=== PATIENT | female | born 1960 | race Two or more races ===

== ENCOUNTER 2016-04-17 12:49 | Emergency (ER) | payer OTHER ==
[2016-04-17 15:18] LABS: ABSOLUTE NEUTROPHIL COUNT 14.4 K/mm3 (1.8-7.7); BASO % 0.2 % (0.2-1.0); EOS # 0.4 (0.0-0.5); EOS % 2.1 % (0.9-2.9); HEMATOCRIT 40.8 % (37.0-47.0); HEMOGLOBIN 12.9 gm/l (12.0-16.0); IMM NEUT # 0.1 K/mm3 (0-0.2); IMM NEUT% 0.3 % (0-1); LYMPH # 2.9 (1.0-4.8); LYMPH % 15.3 % (15-45); MEAN CELL VOLUME 81.1 fl (81.0-99.0); MEAN CORPUSCULAR HEMOGLOBIN 25.6 pg (27.0-31.0); MEAN CORPUSCULAR HGB CONC 31.6 g/dl (33.0-37.0); MEAN PLATELET VOLUME 10.5 fl (7.4-10.4); MONO # 0.9 (0.0-0.8); MONO % 4.9 % (4-12); NEUT % 77.2 % (43-75); PLATELET COUNT 261 K/mm3 (130-400); RED CELL DISTRIBUTION WIDTH 13.8 % (11.5-14.5)
[2016-04-17 15:24] LABS: SPECIFIC GRAVITY 1.015 (1.001-1.030); URINE BILIRUBIN NEGATIVE (NEGATIVE); URINE BLOOD TRACE (NEGATIVE); URINE GLUCOSE (UA) NEGATIVE (NEGATIVE); URINE LEUKOCYTE ESTERASE NEGATIVE (NEGATIVE); URINE NITRITE NEGATIVE (NEGATIVE); URINE PROTEIN NEGATIVE (NEGATIVE); URINE UROBILINOGEN NORMAL (0-1 mg/dl)
[2016-04-17] MEDS ORDERED: SODIUM CHLORIDE 0.9% 1,000 ML ONE (15:24)
[2016-04-17] MEDS ORDERED: ACETAMINOPHEN 500 MG TABLET ONE (15:24)
[2016-04-17] MEDS ORDERED: ONDANSETRON 4 MG/2ML 2 ML VIAL ONE (15:24)
[2016-04-17] MEDS ORDERED: ASPIRIN CHEWTAB 81 MG TABLET ONE (15:25)
[2016-04-17 15:26] LABS: HCG,QUALITATIVE URINE NEGATIVE
[2016-04-17 15:27] LABS: URINE APPEARANCE CLEAR; URINE COLOR YELLOW
[2016-04-17 15:27] LABS: ALB/GLOB RATIO 1.3 (>1.0); ALBUMIN 4.4 gm/dL (3.5-5.7); CALCIUM 9.4 mg/dL (8.6-10.3)
--- NOTE | 2016-04-17 16:28 | RAD ---
CHEST - 2 VIEWS COMPARISON: Chest 2 views, 09/10/2012 HISTORY: Chest discomfort. Viral syndrome. FINDINGS: Views: Frontal and lateral chest Lungs: Normal Heart and vessels: Normal Trachea and bronchi: Normal Mediastinum and guy: Normal Costophrenic sulci: Normal Chest wall and bones: Normal. Upper abdomen: Normal. IMPRESSION: Negative 2 view chest.
== END 2016-04-17 16:52 | disposition home or self-care (01) ==
LOC: ED 12:49
DX: M79.1 Myalgia (principal); R07.9 Chest pain, unspecified; R10.32 Left lower quadrant pain; R11.2 Nausea with vomiting, unspecified; E11.9 Type 2 diabetes mellitus without complications; Z79.84 Long term (current) use of oral hypoglycemic drugs